=== PATIENT | male | born 1975 | race Hispanic/Latino ===

== ENCOUNTER → 2017-01-30 | Outpatient (REF) | payer OTHER ==
[~2017-01-30] MED LIST: EFFE150C PO; GABA-283 PO; HYDR100C PO; HYDR25T PO; NEXI20CA PO; PERC5TAB6 PO; PIRO20CA2 PO; PRAZ1CAP PO; TYLE325T5 PO; VIAG100T PO; ZOCO20TA PO
== END ==
LOC: M SMT 10:45
PROVIDERS: ATTEND Urology
DX: Z30.2 Encounter for sterilization (principal)

== ENCOUNTER → 2017-03-21 | Outpatient (REF) | payer OTHER ==
[2017-03-21 09:56] LABS: IMMMOTILE SPERM CENTRIFUGED ABSENT (ABSENT); IMMOTILE SPERM ABSENT (ABSENT); MOTILE SPERM ABSENT (ABSENT); MOTILE SPERM CENTRIFUGED ABSENT (ABSENT)
== END ==
LOC: M SMT 09:00
PROVIDERS: ATTEND Urology
DX: Z30.2 Encounter for sterilization (principal)

== ENCOUNTER → 2020-10-28 | Outpatient (CLI) | payer SELFPAY ==
[~2020-10-28] MED LIST changes: -EFFE150C PO; +EFFE150C2 PO; -GABA-283 PO; +GABA-845 PO; +HYDR-3363 PO; -HYDR25T PO; +PERC5TAB12 PO; -PERC5TAB6 PO
== END ==
LOC: M LABSMTC 11:23
PROVIDERS: ATTEND Pediatrics
DX: Z20.828 Contact with and (suspected) exposure to other viral communicable diseases (principal)

== ENCOUNTER → 2021-10-20 | Outpatient (CLI) | payer OTHER, SELFPAY ==
[~2021-10-20] MED LIST changes: +ACET1TAB55 PO; +GABA-283 PO; -GABA-845 PO; +NORT75CA2 PO; +OMEP1CAP73 PO; +SUMA50TA2 PO; +TOPI200T7 PO
== END ==
LOC: M LABSMTC 09:50
PROVIDERS: ATTEND Anesthesiology
DX: Z01.812 Encounter for preprocedural laboratory examination (principal); Z20.822 Contact with and (suspected) exposure to COVID-19

== ENCOUNTER → 2021-10-24 | Outpatient (CLI) | payer OTHER | LOC: M LABSMTC 09:00 | PROVIDERS: ATTEND Anesthesiology | DX: Z01.812 Encounter for preprocedural laboratory examination (principal); Z20.822 Contact with and (suspected) exposure to COVID-19 ==

== ENCOUNTER 2021-10-25 07:05 | Day surgery (SDC) | payer OTHER ==
[~2021-10-25] VITALS: Ht 170.2 cm; Wt 98.3 kg
[~2021-10-25 07:05] MED LIST changes: +NS 1,000 ML IV ONE
[2021-10-25] MEDS ORDERED: propofoL 200 MG/20 ML VIAL As Ordered ONE (07:07)
[2021-10-25] MEDS ORDERED: LIDOCAINE 2% 100MG/5ML SDV (FOR ANES.) As Ordered ONE (07:07)
--- NOTE | 2021-10-25 08:17 | ROOR ---
Patient Name: Jose R Anne Procedure Date: 10/25/2021 8:00 AM Date of : 1975 Age: 46 Room: [facility] Gender: Male Note Status: Finalized Procedure: Upper Endoscopy + Biopsies Indications: Heartburn, Exclusion of Reed's esophagus Providers: Shamar Gamboa MD Referring MD: [facility], Admin. Requesting Provider: Medicines: Monitored Anesthesia Care Complications: No immediate complications. Procedure: Pre-Anesthesia Assessment: - The heart rate, respiratory rate, oxygen saturations, blood pressure, adequacy of pulmonary ventilation, and response to care were monitored throughout the procedure. The Endoscope was introduced through the mouth, and advanced to the second part of duodenum. The upper GI endoscopy was accomplished without difficulty. The patient tolerated the procedure well. Findings: The Z-line was variable and was found 40 cm from the incisors. Multiple biopsies were obtained with cold forceps for evaluation to rule out Reed's Esophagus randomly at the gastroesophageal junction. No other significant abnormalities were identified in a careful examination of the stomach. Biopsies were taken with a cold forceps in the gastric antrum for Helicobacter pylori testing. The exam of the duodenum was otherwise normal. Impression: - Z-line variable, 40 cm from the incisors. - Multiple biopsies were obtained at the gastroesophageal junction. - Biopsies were taken with a cold forceps for Helicobacter pylori testing. - The examination was otherwise normal. Recommendation: - Patient has a contact number available for emergencies. The signs and symptoms of potential delayed complications were discussed with the patient. Return to normal activities tomorrow. Written discharge instructions were provided to the patient. - High fiber diet. - Discharge patient to home. - Follow an antireflux regimen. - Continue present medications. - Await pathology results. - Telephone GI clinic for pathology results in 1 week. - Repeat upper endoscopy for surveillance based on pathology results. - Return to referring physician. - The findings and recommendations were discussed with the patient. Procedure Code(s): --- Professional --- 18310, Esophagogastroduodenoscopy, flexible, transoral; with biopsy, single or multiple Diagnosis Code(s): --- Professional --- K22.8, Other specified diseases of esophagus R12, Heartburn CPT copyright 2019 [employer]. All rights reserved. The codes documented in this report are preliminary and upon able seaman review may be revised to meet current compliance requirements. Shamar Gamboa MD Shamar Gamboa MD 10/25/2021 8:16:53 AM Electronically signed by Shamar Gamboa MD Number of Addenda: 0 Note Initiated On: 10/25/2021 8:00 AM Estimated Blood Loss: Estimated blood loss: none.
--- NOTE | 2021-10-25 08:31 | ROOR ---
Patient Name: Jose R Anne Procedure Date: 10/25/2021 8:01 AM Date of : 1975 Age: 46 Room: [facility] Gender: Male Note Status: Finalized Procedure: Total Colonoscopy to Cecum + Bx. To r/o Microscopic Colitis Indications: Screening for colorectal malignant neoplasm, Incidental - Clinically significant diarrhea of unexplained origin Providers: Shamar Gamboa MD Referring MD: [facility], Admin. Requesting Provider: Medicines: Monitored Anesthesia Care Complications: No immediate complications. Procedure: Pre-Anesthesia Assessment: - The heart rate, respiratory rate, oxygen saturations, blood pressure, adequacy of pulmonary ventilation, and response to care were monitored throughout the procedure. The Colonoscope was introduced through the anus and advanced to the cecum, identified by appendiceal orifice and ileocecal valve. The colonoscopy was performed without difficulty. The patient tolerated the procedure well. The quality of the bowel preparation was good. Findings: The perianal and digital rectal examinations were normal. Non-bleeding internal hemorrhoids were found during retroflexion. The hemorrhoids were small and Grade I (internal hemorrhoids that do not prolapse). No other significant abnormalities were identified in a careful examination of the remainder of the colon. Biopsies for histology were taken with a cold forceps from the ascending colon, transverse colon and descending colon for evaluation of microscopic colitis. The exam was otherwise without abnormality on direct and retroflexion views. Impression: - Non-bleeding internal hemorrhoids. - The examination was otherwise normal on direct and retroflexion views. - Biopsies were taken with a cold forceps from the ascending colon, transverse colon and descending colon for evaluation of microscopic colitis. - The exam was otherwise normal to the cecum. Recommendation: - Patient has a contact number available for emergencies. The signs and symptoms of potential delayed complications were discussed with the patient. Return to normal activities tomorrow. Written discharge instructions were provided to the patient. - High fiber diet. - Discharge patient to home. - Continue present medications. - Await pathology results. - Telephone GI clinic for pathology results in 1 week. - Repeat colonoscopy in 10 years for screening purposes. - Return to referring physician. - The findings and recommendations were discussed with the patient. Procedure Code(s): --- Professional --- 50032, Colonoscopy, flexible; with biopsy, single or multiple Diagnosis Code(s): --- Professional --- Z12.11, Encounter for screening for malignant neoplasm of colon K64.0, First degree hemorrhoids CPT copyright 2019 [employer]. All rights reserved. The codes documented in this report are preliminary and upon edge trimmer review may be revised to meet current compliance requirements. Shamar Gamboa MD Shamar Gamboa MD 10/25/2021 8:31:37 AM Electronically signed by Shamar Gamboa MD Number of Addenda: 0 Note Initiated On: 10/25/2021 8:01 AM Estimated Blood Loss: Estimated blood loss: none.
[2021-10-25 09:00] VITALS: BP 109/65
== END 2021-10-25 08:50 | disposition home or self-care (01) ==
LOC: M OPP 07:05
PROVIDERS: ATTEND Internal Medicine Gastroenterology
DX: Z12.11 Encounter for screening for malignant neoplasm of colon (principal); K63.5 Polyp of colon; K64.0 First degree hemorrhoids; K58.0 Irritable bowel syndrome with diarrhea; K22.89 Other specified disease of esophagus; R12 Heartburn; Z79.899 Other long term (current) drug therapy; Z88.8 Allergy status to other drugs, medicaments and biological substances; F17.210 Nicotine dependence, cigarettes, uncomplicated